=== PATIENT | female | born 1995 ===

== ENCOUNTER 2016-08-06 18:44 | Emergency (ER) | payer OTHER ==
[2016-08-06 20:37] VITALS: BP 110/55
[2016-08-06] MEDS ORDERED: Acetaminoph/Cod 120/12 mg LIQ* 5 ML UDC PO ONE (21:09)
--- NOTE | 2016-08-06 21:14 | UC ---
FLU HPI - HPI Summary HPI Summary: 3d malaise, ST, fevers, chills, body aches, mild headache, nausea, poor appetite. No flu shot. At college, epidemic of flu ongoing. Roommates ill with flu. She would like Strep test, had tonsillectomy in past year for repeated Strep. - History of Current Complaint Chief Complaint: UCGeneralIllness Stated Complaint: SORE THROAT Time Seen by Provider: 08/06/16 20:49 Hx Obtained From: Patient Hx Last Menstrual Period: 07/22/16 Onset/Duration: Gradual Onset, Lasting Days - 3 Severity Currently: Mild Severity Initially: Mild Associated Signs & Symptoms: Positive: Fever, Myalgia, Sore Throat, Nasal Congestion, Headache - Risk Factors Influenza Risk Factors: Negative - Allergy/Home Medications Allergies/Adverse Reactions: Allergies Allergy/AdvReac Type Severity Reaction Status Date / Time Ibuprofen Allergy Hives Verified 08/06/16 20:37 Home Medications: Home Medications Cholecalciferol [Vitamin D] 2,000 unit PO DAILY 08/06/16 [History Confirmed ] Cobalamine Combinations [B-6 Folic Acid] 1 cap PO DAILY 08/06/16 [History Confirmed 08/06/16] FLUoxetine CAP* [PROzac CAP*] 10 mg PO BEDTIME 08/06/16 [History Confirmed 08/06] FLUoxetine CAP* [PROzac CAP*] 20 mg PO BEDTIME 08/06/16 [History Confirmed 08/06] Levonorgestrel & Eth Estradiol [[place]] 1 tab PO DAILY 08/06/16 [History Confirmed 08/06/16] Magnesium [Magnacaps] 100 mg PO DAILY 08/06/16 [History Confirmed 08/06/16] PMH/Surg Hx/FS Hx/Imm Hx Previously Healthy: Yes - Surgical History Surgical History: Yes Surgery Procedure, Year, and Place: WISDOM TEETH EXTRACTIONS. TONSILLECTOMY - Family History Known Family History: Negative: Seizure Disorder - Social History Occupation: Student Lives: Alone - dorm Alcohol Use: Occasionally Substance Use Type: None Smoking Status (MU): Never Smoked Tobacco Review of Systems Constitutional: Fever, Chills, Fatigue Skin: Negative Eyes: Negative ENT: Sore Throat, Nasal Discharge Respiratory: Negative Cardiovascular: Negative Gastrointestinal: Negative Genitourinary: Negative Motor: Negative Neurovascular: Negative Musculoskeletal: Myalgia Neurological: Headache Psychological: Negative All Other Systems Reviewed And Are Negative: Yes Physical Exam Triage Information Reviewed: Yes Appearance: Well-Appearing, No Pain Distress, Well-Nourished Vital Signs: Initial Vital Signs Temp 99.4 F 08/06/16 20:31 Pulse 92 08/06/16 20:31 Resp 16 08/06/16 20:31 BP 110/55 08/06/16 20:31 Pulse Ox 98 08/06/16 20:31 Vital Signs Reviewed: Yes Eye Exam: Normal Eyes: Positive: Conjunctiva Clear ENT: Positive: Hearing grossly normal, Pharyngeal erythema - mild, TMs normal, Muffled/hoarse voice - hoarse. Negative: Nasal drainage, Tonsillar swelling, Tonsillar exudate, Trismus Neck exam: Normal Neck: Positive: Supple Respiratory Exam: Normal Cardiovascular Exam: Normal Musculoskeletal Exam: Normal Neurological Exam: Normal Psychological Exam: Normal Skin Exam: Normal Diagnostics - Laboratory Diagnostic Studies Completed/Ordered: Strep neg Flu Course/Dx - Differential Dx/Diagnosis Differential Diagnosis/HQI/PQRI: Influenza, Upper Respiratory Infection Provider Diagnoses: influenza Discharge - Discharge Plan Condition: Stable Disposition: HOME Prescriptions: Acetaminoph/Cod 120/12 mg LIQ* [Tylenol/Codeine 120/12 LIQ*] 10 ml PO Q4H PRN # 120 ml MDD 30ml PRN Reason: sore throat or cough Patient Education Materials: Influenza (ED) Forms: *School Release
== END 2016-08-06 21:23 | disposition home or self-care (01) ==
LOC: EDBD 18:44 → UCCORT 18:44
DX: J11.1 Influenza due to unidentified influenza virus with other respiratory manifestations (principal); Z88.6 Allergy status to analgesic agent
CPT/HCPCS: 87651; 99202; A9270-GY; G0463